=== PATIENT | female | born 1970 ===

== ENCOUNTER 2020-08-04 14:11 | Emergency (ER) | payer OTHER, SELFPAY ==
--- NOTE | ~2020-08-04 | CT_ITS ---
EXAMINATION: CT abdomen pelvis w con DATE: 08/04/2020 15:54 INDICATION: Epigastric abdominal pain, nausea, vomiting TECHNIQUE: Computed tomography (CT) of the abdomen and pelvis was performed with 100 cc Omnipaque 350 intravenous contrast. Automated exposure control and iterative reconstruction technique were employe d. Exam dose: 1195.97 mGy-cm total exam DLP. COMPARISON: None. FINDINGS: There is mild discoid atelectasis or scarring at the lung bases but no pulmonary consolidat ion. Normal heart size. No pericardial or pleural effusion. Small sliding hiatal hernia. 3.3 cm posterior right hepatic dome cyst. There is focal fatty infiltration adjacent to the fissure f or the ligamentum teres. No solid space-occupying mass lesion of the liver is evident. Normal splenic size. No pancreatic mass lesion, calcification or ductal dilatation. Normal morphology of the adrenal glands. No renal mass lesion. 3 mm nonobstructing lower pole right r enal calculus. No urinary tract obstruction or hydroureteronephrosis. The urinary bladder is evacuate d, not optimally evaluated. There is atherosclerotic calcification of the abdominal aorta but no aneurysm. No intraperitoneal or retroperitoneal or pelvic mass lesion or adenopathy or ascites. There are numerous diverticula of the sigmoid and to a lesser extent descending colon; no CT evidence of diverticulitis. Normal appendix. No bowel obstruction, bowel wall thickening, pneumatosis or intr aperitoneal free air. 1 cm and 2.2 cm left adnexal, presumably ovarian cyst. The uterus appears to be surgically absent. Small fat-containing umbilical hernia. Diffuse idiopathic skeletal hyperostosis of the thoracic spine Severe degenerative disc disease at L5-S1. IMPRESSION: Small sliding hiatal hernia 3.3 cm hepatic cyst 3 mm nonobstructing lower pole right renal calculus Diverticulosis of the left colon; no CT evidence of diverticulitis Status post hysterectomy; left ovarian 1 and 2.2 cm cysts Reviewed, dictated and finalized at [facility]. Reviewed, dictated and finalized at [facility].
[2020-08-04 14:12] VITALS: BP 157/108; PULSE 80; RESP 20; TEMP 36.4; O2SAT 99
--- NOTE | 2020-08-04 14:19 | ED.NAVMDI ---
HPI - Nausea/Vomiting/Diarrhea General Chief complaint: Nausea/Vomiting/Diarrhea Stated complaint: VOMITING Source: patient and EMS Mode of arrival: EMS Limitations: no limitations History of Present Illness HPI Narrative: Patient is a 50-year-old female with a history of hypothyroidism, hypertension who presents for evaluation of nausea, vomiting and flank pain. Patient reports history of epigastric pain over the past 12 hours, recurrent nausea and vomiting. She reports nonbloody, nonbilious emesis. She reports a burning type pain in her throat. She denies any chest pain or shortness of breath. She reports pain in the right flank. She states in the past she has a history of a 4 mm right-sided kidney stone. Patient denies any dysuria or hematuria. She denies fever or chills. Related Data Allergies Allergy/AdvReac Type Severity Reaction Status Date / Time acetaminophen [Percocet] Allergy Intermediate Verified 06/15/17 13:09 ciprofloxacin [Cipro] Allergy Intermediate Verified 06/15/17 13:10 levofloxacin [Levaquin] Allergy Intermediate Verified 06/15/17 13:09 oxycodone [Percocet] Allergy Intermediate Verified 06/15/17 13:09 trazodone Allergy Intermediate vomiting Verified 12/27/17 14:52 latex Allergy Mild Verified 05/18/16 00:14 OXYCODONE HCL Allergy Mild Uncoded 05/18/16 00:14 Review of Systems Review of Systems: Narrative: CONSTITUTIONAL: Denies fever, chills, or sweats. ENT: Denies rhinorrhea, congestion, sore throat, or otalgia. CARDIOVASCULAR: Denies chest pain, palpitations, or edema. RESPIRATORY: Denies cough or dyspnea. GASTROINTESTINAL: Reports abdominal pain, nausea and vomiting GENITOURINARY: Denies dysuria or hematuria. SKIN: Denies rash or itching. MUSCULOSKELETAL: Reports right flank pain, denies other joint pain or myalgias NEUROLOGIC: Denies headache, numbness, or weakness. PSYCHIATRIC: Reports history of anxiety and depression PMF Past Medical History Medical History Anxiety Depression GERD (gastroesophageal reflux disease) Hypertension Hypothyroidism Migraine Surgical History Surgical History (Updated 08/04/20 @ 14:43 by Salena Lala MD) H/O: hysterectomy S/P foot surgery, right Family History Family History (Updated 09/22/18 @ 00:00 by [facility] A) Son Family history of type 2 diabetes mellitus Brother Family history of type 2 diabetes mellitus Sister Family history of type 2 diabetes mellitus Social History Social History Smoking status: Never smoker Exam Narrative: Exam Narrative: GENERAL: Awake, alert, vomiting in room HEAD: Normocephalic, atraumatic. EYES: PERRLA and EOMI. ENT: Nares clear, no rhinorrhea or epistaxis. Mucous membranes moist. NECK: Supple. CHEST: No respiratory distress, breathing even and non labored HEART: Regular rate, sinus rhythm ABDOMEN:Non distended, tender to palpation in epigastrium EXTREMITIES: Normal range of motion. No edema. SKIN: Warm, dry, no rash. NEURO:No focal deficits. Alert and oriented x3 Course Vital Signs Vital signs: Vital Signs Temperature 36.4 C 08/04/20 14:12 Pulse Rate 80 08/04/20 14:12 Respiratory Rate 20 08/04/20 14:12 Blood Pressure 157/108 H 08/04/20 14:12 Pulse Oximetry 99 08/04/20 14:12 Temperature 36.4 C 08/04/20 14:12 Pulse Rate 80 08/04/20 14:12 Respiratory Rate 20 08/04/20 14:12 Blood Pressure 157/108 H 08/04/20 14:12 Pulse Oximetry 99 08/04/20 14:12 MDM - Nausea/Vomiting/Diarrhea MDM Narrative Medical decision making narrative: Patient presented for evaluation of nausea, vomiting and upper abdominal pain. At the time of assessment, ABCs are intact and vital signs are stable. Patient is denying any chest pain or shortness of breath. Patient has reproducible epigastric pain. IV access obtained and labs are drawn. Laboratory results are reassuring. Mild
[2020-08-04] MEDS: diphenhydrAMINE HCl INJ 50 MG/ML VIAL 25 MG IV PUSH (14:28)
[2020-08-04] MEDS: ONDANSETRON INJ 4 MG/2 ML VIAL IV PUSH (14:28)
[2020-08-04] MEDS: MORPHINE SULFATE 4 MG/ML INJ IV PUSH (14:28)
[2020-08-04] MEDS: SODIUM CHLORIDE 0.9% IV 1,000 ML 999 ML IV CONT (14:29)
[2020-08-04 14:54] LABS: Basophils Percent Auto 0.4 % (0.2-1.2); Eosinophils Percent Auto 0.4 % (0-4.4); Hemoglobin 15.3 g/dL (12.0-15.0); Immature Granulocyte Absolute 0.04 K/mm3 (0.00-0.031); Immature Granulocyte Percent A 0.4 % (0-0.5); Lymphocytes Absolute Auto 0.79 K/mm3 (0.9-3.2); Lymphocytes Percent Auto 7.8 % (18.3-44.2); Mean Corpuscular HGB Conc 34.8 g/dl (32-36); Mean Corpuscular Hemoglobin 30.9 pg (26-34); Mean Corpuscular Volume 88.9 fl (80-100); Mean Platelet Volume 9.8 fl (7.4-10.4); Monocytes Absolute Auto 0.4 K/mm3 (0.1-0.6); Monocytes Percent Auto 4.3 % (2.6-8.5); Neutrophils Absolute Auto 8.8 K/mm3 (1.3-6.7); Neutrophils Percent Auto 86.7 % (45.5-73.1); Platelet Count Result 214 k/mm3 (150-375); Red Blood Count 4.95 M/mm3 (4.2-5.4); Red Cell Distribution Width 12.6 % (11.5-14.5); White Blood Count 10.1 K/mm3 (4.5-10.0)
[2020-08-04 15:06] LABS: Alanine Aminotransferase 24 U/L (4-35); Albumin Level 3.9 g/dL (3.5-5.1); Alkaline Phosphatase 78 U/L (38-126); Anion Gap 11 mmol/L (8-16); Aspartate Amino Transferase 29 U/L (14-36); Bilirubin,Total 0.9 mg/dL (0.2-1.3); Blood Urea Nitrogen 23 mg/dL (7-17); Calcium 8.8 mg/dL (8.4-10.2); Carbon Dioxide 25 mmol/L (22-30); Chloride 101 mmol/L (98-107); Estimated CRCL calculation 68 ml/min; Estimated Glomerular Filt Rate 53; Glucose 128 mg/dL (65-105); Lipase 45 U/L (23-300); Potassium 3.5 mmol/L (3.4-5.0); Sodium 137 mmol/L (137-145)
[2020-08-04 16:11] LABS: Add Urine Microscopic? YES; Appearance Urine Clear (Clear); Bacteria Urine Trace /hpf; Bilirubin Urine Negative (Negative); Blood Urine Negative (Negative); Color Urine Yellow (Yellow); Glucose Urine UA Negative (Negative); Ketones Urine Trace mg/dL (Negative); Leukocyte Esterase Ur Negative LEU/UL (Negative); Mucus Urine Rare /lpf; Nitrate Urine Negative (Negative); Protein Urine 1+ mg/dL (Negative); RBC Urine 0-2 /hpf (0-2); Specific Grav Ur 1.019 (1.001-1.035); Squamous Epithelial Cell Urine Few /hpf (Few); Urobilinogen Urine Negative mg/dL (<2.0); WBC Urine 0-3 /hpf
[2020-08-04 16:56] VITALS: BP 132/68; PULSE 80; RESP 20; O2SAT 99
== END 2020-08-04 16:58 | disposition home or self-care (01) ==
PROVIDERS: Emergency Provider Emergency Medicine; PCP Nurse Practitioner Family
DX: E86.0 Dehydration (principal); E03.9 Hypothyroidism, unspecified; I10 Essential (primary) hypertension; K21.9 Gastro-esophageal reflux disease without esophagitis; N83.202 Unspecified ovarian cyst, left side; K44.9 Diaphragmatic hernia without obstruction or gangrene; K76.89 Other specified diseases of liver; N20.0 Calculus of kidney
CPT/HCPCS: 36415; 74177; 80053; 81001; 83690; 85025; 96361; 96374; 96375; 99284; J1200; J2270; J2405; J7030; Q9967

== ENCOUNTER 2020-11-09 09:11 | Outpatient (CLI) | payer OTHER, SELFPAY ==
[2020-11-11 18:34] LABS: SARS-CoV-2 RNA PCR Negative
== END 2020-11-09 09:12 | disposition home or self-care (01) ==
LOC: CHSLAB 09:15
PROVIDERS: PCP Nurse Practitioner Family; Visit Provider Nurse Practitioner Family
DX: Z20.828 Contact with and (suspected) exposure to other viral communicable diseases (principal)
CPT/HCPCS: 87635; C9803; U0003

== ENCOUNTER → 2021-05-01 08:40 | Outpatient (CLI) | payer OTHER, SELFPAY ==
--- NOTE | ~2021-05-01 | MR_ITS ---
EXAMINATION: MR foot LT wo con DATE: 05/01/2021 09:25 INDICATION: Plantar fasciitis. TECHNIQUE: Magnetic resonance imaging (MRI) of the left foot excluding the toes was performed without intravenous contrast. Sequences included sagittal, coronal, and axial proton-density weighted fast s pin echo without and with fat saturation. COMPARISON: None. FINDINGS: Medial ankle ligaments: Deep and superficial deltoid ligaments as well as the spring ligament are normal. Lateral ankle ligaments: The anterior and posterior inferior tibiofibular ligaments are normal. There is thickening of the ant erior talofibular and calcaneofibular ligaments without surrounding edema consistent with mild scarri ng related to chronic sprains. The posterior talofibular ligament is normal. Tendons: Achilles tendon is normal. The peroneus longus and brevis tendons are normal. The tibialis anterior a nd extensor hallucis longus and extensor digitorum longus tendons are normal. The tibialis posterior, flexor digitorum longus and flexor hallucis longus tendons are normal. Plantar fascia: Small plantar calcaneal spur at the origin of the plantar aponeurosis. Thickening of the central comp onent of the plantar aponeurosis consistent with mild tendinopathy. There is an oblique near complete tear of the central component of the plantar aponeurosis which begins medially approximately 1 cm fr om the origin and extends 2.5 cm distally as it traverses laterally across the majority of the centra l component of the plantar aponeurosis with small lateral most portion of the aponeurosis comprising approximately 10-20% of the cross-sectional area remaining intact. The small medial lateral componen ts of the plantar aponeurosis remain normal. Bones/other: Bone alignment is normal. 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 Otherwise normal marrow signal with no fracture or pathologic marrow replacing process. Lisfranc ligament complex is normal. Physiologic amount fluid in the joint spaces. IMPRESSION: 1. High-grade partial tear of the central component of the plantar aponeurosis. Reviewed, dictated and finalized at [facility].
== END ==
PROVIDERS: PCP Family Medicine; Visit Provider Podiatrist Foot & Ankle Surgery
DX: M72.2 Plantar fascial fibromatosis (principal); S86.812A Strain of other muscle(s) and tendon(s) at lower leg level, left leg, initial encounter
CPT/HCPCS: 73718